=== PATIENT | female | born 1995 | race African-American/Black ===

== ENCOUNTER 2021-03-12 11:40 | Inpatient (IN) ==
[2021-03-12] MEDS ORDERED: MEPERIDINE 50 MG/1 ML VIAL IV PRN (12:34)
[2021-03-12] MEDS ORDERED: LACTATED RINGERS 1,000 ML IV PRN (12:34)
[2021-03-12] MEDS ORDERED: ONDANSETRON 4 MG/2 ML VIAL IV PRN (12:34)
[2021-03-12 12:55] LABS: Basophils % 0.1 % (0.0-0.8); Eosinophils # 0.1 10*3/uL (0.0-0.87); Eosinophils % 0.9 % (0.00-10.9); Hematocrit 34.1 VOL% (35.7-47.0); Hemoglobin 11.2 GM/DL (12.0-16.0); Immature Granulocytes Absolute 0.09 #; Lymphocytes # 2.2 10*3/uL (1.4-4.0); Lymphocytes % 24.4 % (21.3-54.2); Mean Corpuscular HGB Conc 32.8 GM/DL (32-36); Mean Corpuscular Volume 85.9 FL (87-102); Mean Platelet Volume 9.5 FL (9.6-12.0); Monocytes % 8.9 % (1.7-12.7); NRBC # 0.03 10*3/uL; Neutrophils % 64.7 % (38.7-73.9); Platelet Count 214 T/CUMM (130-400); Red Blood Count 3.97 MC/CUMM (3.8-5.5); Red Cell Distribution Width 14.6 % (9.3-17.3)
[2021-03-12 13:11] LABS: INR 0.9; PT Patient Result 9.9 SECS (10.5-12.0); Partial Thromboplastin Time 31.4 SECS (23.9-33.8)
[2021-03-12 13:16] LABS: Albumin 2.6 G/DL (3.4-5.0); Bilirubin,Direct 0.12 MG/DL (0.0-0.20); Bilirubin,Total 0.4 MG/DL (0.20-1.00); Calcium 9.2 MG/DL (8.5-10.1); Osmolality,Calculated 268.8 MOS/KG (273-304); Potassium 3.6 MMOL/L (3.5-5.1); Total Protein 7.1 G/DL (6.4-8.2); Uric Acid 5.7 MG/DL (2.6-6.0)
[2021-03-12 16:27] LABS: Protein/Creatinine Ratio,Urine 0.3 RATIO
[2021-03-12] MEDS: LABETALOL 100 MG TABLET PO SCH (21:20)
[2021-03-13] MEDS: LABETALOL 100 MG TABLET PO SCH (08:19)
[2021-03-13] MEDS ORDERED: FAMOTIDINE 20 MG/2 ML VIAL IV ONE (08:37)
[2021-03-13] MEDS ORDERED: ePHEDrine 50 MG/ML VIAL IV PRN (08:37)
[2021-03-13] MEDS ORDERED: CITRIC ACID/SODIUM CITRATE 30 ML UDCUP PO ONE (08:37)
[2021-03-13] MEDS ORDERED: LACTATED RINGERS 1,000 ML IV ONE (08:37)
[2021-03-13] MEDS ORDERED: NALOXONE 0.4 MG/ML VIAL IV PRN (08:37)
[2021-03-13] MEDS ORDERED: diphenhydrAMINE 50 MG/1 ML VIAL IV PRN ×2 (08:37)
[2021-03-13] MEDS ORDERED: LACTATED RINGERS 1,000 ML IV SCH ×2 (09:00)
[2021-03-13] MEDS ORDERED: fentaNYL 2 MCG/ROPIV 0.2% EPID 100 ML EPIDURAL SCH (09:00)
[2021-03-13] MEDS: OXYTOCIN/LR 20 UNIT/1,000 ML BAG IV SCH ×2 (09:18→16:51)
[2021-03-13] MEDS ORDERED: miSOPROStoL 200 MCG TABLET ONE (14:39)
[2021-03-13] MEDS ORDERED: TRANEXAMIC ACID 1,000 MG/10 ML VIAL ONE (14:39)
[2021-03-13] MEDS ORDERED: CARBOPROST TROMETHAMINE 250 MCG/ML AMP IM ONE (14:39)
[2021-03-13] MEDS ORDERED: METHYLERGONOVINE 0.2 MG/1 ML AMP ONE (14:39)
[2021-03-13] MEDS ORDERED: SODIUM CHLORIDE 0.9% 0 ML IV ONE (14:40)
[2021-03-13 15:18] LABS: Cord Arterial Blood HCO3 21.1 MMOL/L
[2021-03-13 15:22] LABS: Cord Venous Blood PO2 32.7
[2021-03-13] MEDS ORDERED: RHO(D) IMMUNE GLOBULIN 300 MCG SYRINGE IM ONE (17:56)
[2021-03-13] MEDS ORDERED: BISACODYL 10 MG SUPP RECTAL PRN (17:56)
[2021-03-13] MEDS ORDERED: OXYTOCIN/LR 20 UNIT/1,000 ML BAG IV ONE (17:56)
[2021-03-13] MEDS ORDERED: oxyCODONE/ACETAMINOPHEN 5-325 MG TABLET PO PRN ×2 (17:56)
[2021-03-13] MEDS ORDERED: DIPH/TET/ACEL PERT BOOSTER VACCINE 0.5 ML VIAL IM ONE (17:56)
[2021-03-13] MEDS ORDERED: WITCH HAZEL PADS 100/JAR TOP PRN (17:56)
[2021-03-13] MEDS ORDERED: LANOLIN 50% CREAM 0.3 OZ TUBE TOP PRN (17:56)
[2021-03-13] MEDS ORDERED: BENZOCAINE 20%/MENTHOL 0.5% SPRAY 56 GM CAN TOP PRN (17:56)
[2021-03-13] MEDS ORDERED: ACETAMINOPHEN 325 MG TABLET PO PRN (17:56)
[2021-03-13] MEDS ORDERED: HYDROCORTISONE 2.5% RECTAL CREAM 30 GM TUBE TOP PRN (17:56)
[2021-03-13] MEDS ORDERED: MEASLES/MUMPS/RUBELLA VACCINE 0.5 ML VIAL SUBCUT ONE (17:56)
[2021-03-13] MEDS: IBUPROFEN 800 MG TABLET PO PRN (19:05)
[2021-03-13] MEDS: DOCUSATE SODIUM 100 MG CAPSULE PO SCH (21:33)
[2021-03-14 05:59] LABS: Basophils % 0.2 % (0.0-0.8); Eosinophils # 0.2 10*3/uL (0.0-0.87); Eosinophils % 1.5 % (0.00-10.9); Hemoglobin 9.9 GM/DL (12.0-16.0); Immature Granulocytes % 0.8 %; Immature Granulocytes Absolute 0.08 #; Lymphocytes # 2.3 10*3/uL (1.4-4.0); Lymphocytes % 23.3 % (21.3-54.2); Mean Corpuscular Volume 85.2 FL (87-102); Monocytes % 8.8 % (1.7-12.7); NRBC # 0.03 10*3/uL; Neutrophils % 65.4 % (38.7-73.9); Platelet Count 179 T/CUMM (130-400); Red Blood Count 3.52 MC/CUMM (3.8-5.5); Red Cell Distribution Width 14.6 % (9.3-17.3); White Blood Count 9.9 T/CUMM (4-12)
[2021-03-14] MEDS: DOCUSATE SODIUM 100 MG CAPSULE PO SCH ×2 (10:15→19:51)
[2021-03-14] MEDS ORDERED: RHO(D) IMMUNE GLOBULIN 300 MCG SYRINGE IM ONE (15:41)
[2021-03-14] MEDS: IBUPROFEN 800 MG TABLET PO PRN (19:51)
[2021-03-15] MEDS: DOCUSATE SODIUM 100 MG CAPSULE PO SCH ×2 (07:26→08:51)
[2021-03-15 09:44] VITALS: BP 150/96
== END 2021-03-15 11:10 | disposition home or self-care (01) | DRG 807 ==
LOC: N.LDOUT 11:40 → N.LD 11:42 → N.OB 03-13 17:55
PROVIDERS: ADMIT Obstetrics & Gynecology; ATTEND Obstetrics & Gynecology

== ENCOUNTER 2022-06-14 03:13 | Inpatient (IN) ==
[2022-06-14] MEDS ORDERED: ONDANSETRON 4 MG/2 ML VIAL IV PRN (03:23)
[2022-06-14] MEDS ORDERED: miSOPROStoL 200 MCG TABLET RECTAL PRN (03:23)
[2022-06-14] MEDS ORDERED: OXYTOCIN/LR 20 UNIT/1,000 ML BAG IV ONE (03:23)
[2022-06-14] MEDS ORDERED: METHYLERGONOVINE 0.2 MG/1 ML AMP IM PRN (03:23)
[2022-06-14] MEDS ORDERED: TRANEXAMIC ACID 1,000 MG in SODIUM CHLORIDE 0.9% 100 ML IV PRN (03:23)
[2022-06-14] MEDS ORDERED: CARBOPROST TROMETHAMINE 250 MCG/ML AMP IM PRN (03:23)
[2022-06-14 04:00] LABS: Basophils % 0.1 % (0.0-0.8); Eosinophils # 0.1 10*3/uL (0.0-0.87); Hematocrit 33.4 VOL% (35.7-47.0); Hemoglobin 10.9 GM/DL (12.0-16.0); Immature Granulocytes % 0.5 %; Immature Granulocytes Absolute 0.04 #; Lymphocytes # 2.7 10*3/uL (1.4-4.0); Lymphocytes % 32.6 % (21.3-54.2); Mean Corpuscular HGB Conc 32.6 GM/DL (32-36); Mean Corpuscular Volume 83.1 FL (87-102); Monocytes # 0.7 10*3/uL (0.11-0.8); Monocytes % 8.3 % (1.7-12.7); Neutrophils % 57.5 % (38.7-73.9); Platelet Count 260 T/CUMM (130-400); Red Blood Count 4.02 MC/CUMM (3.8-5.5); Red Cell Distribution Width 15.4 % (9.3-17.3); White Blood Count 8.2 T/CUMM (4-12)
[2022-06-14] MEDS: LACTATED RINGERS 1,000 ML IV SCH ×2 (04:00→06:55)
[2022-06-14] MEDS ORDERED: OXYTOCIN/LR 20 UNIT/1,000 ML BAG IV SCH (04:00)
[2022-06-14 04:17] LABS: Alanine Aminotransferase 13 U/L (13-56); Albumin 2.6 G/DL (3.4-5.0); Alkaline Phosphatase 184 U/L (45-117); Aspartate Amino Transferase 11 U/L (0-37); Bilirubin,Total < 0.39 MG/DL (0.20-1.00); Blood Urea Nitrogen 7 MG/DL (7-18); Calcium 8.8 MG/DL (8.5-10.1); Carbon Dioxide 23 MMOL/L (21-32); Chloride 110 MMOL/L (98-107); Glucose 83 MG/DL (74-106); Osmolality,Calculated 273.5 MOS/KG (273-304); Potassium 3.9 MMOL/L (3.5-5.1); Sodium 139 MMOL/L (136-145); Total Protein 7.1 G/DL (6.4-8.2); Uric Acid 5.1 MG/DL (2.6-6.0)
[2022-06-14] MEDS ORDERED: diphenhydrAMINE 50 MG/1 ML VIAL IV PRN ×2 (14:02)
[2022-06-14] MEDS ORDERED: NALOXONE 0.4 MG/ML VIAL IV PRN (14:02)
[2022-06-14] MEDS ORDERED: CITRIC ACID/SODIUM CITRATE 30 ML UDCUP PO ONE (14:02)
[2022-06-14] MEDS ORDERED: ePHEDrine 50 MG/ML VIAL IV PRN (14:02)
[2022-06-14] MEDS ORDERED: PROMETHAZINE 25 MG/1 ML VIAL IM ONE (14:02)
[2022-06-14] MEDS ORDERED: LACTATED RINGERS 1,000 ML IV ONE (14:02)
[2022-06-14] MEDS ORDERED: hydrOXYzine HCL 25 MG/1 ML VIAL IM PRN (14:02)
[2022-06-14] MEDS ORDERED: FAMOTIDINE 20 MG/2 ML VIAL IV ONE (14:02)
[2022-06-14] MEDS ORDERED: fentaNYL 2 MCG/ROPIV 0.2% EPID 100 ML EPIDURAL SCH (14:30)
[2022-06-14] MEDS ORDERED: OXYTOCIN/LR 30 UNIT/1,000 ML BAG IV ONE (15:21)
[2022-06-14 15:26] LABS: Cord Venous Blood HCO3 21.8 MMOL/L; Cord Venous Blood PCO2 40.7 MMHG; Cord Venous Blood PO2 29.4
[2022-06-14 16:11] LABS: Mucus,Urine Occasional /LPF (Occasional); RBC,Urine <1 /HPF (0-4)
[2022-06-14 16:12] LABS: Glucose,Urine (UA) Negative (Negative); Ketones,Urine >=160 mg/dL (Negative); Nitrite,Urine Positive (Negative); Protein,Urine Negative (Negative); Urine Appearance Clear (Clear); Urine Color Yellow (Yellow); Urine pH 6.5 (4.5-8.0)
[2022-06-14 16:13] LABS: Bilirubin,Urine Negative (Negative); Blood, Urine Trace mg/dL (Negative); Urine Urobilinogen 0.2 eU/dL (<2.0)
[2022-06-15 05:55] LABS: Basophils % 0.1 % (0.0-0.8); Eosinophils # 0.1 10*3/uL (0.0-0.87); Hematocrit 34.8 VOL% (35.7-47.0); Hemoglobin 11.3 GM/DL (12.0-16.0); Immature Granulocytes % 0.5 %; Immature Granulocytes Absolute 0.06 #; Lymphocytes % 26.4 % (21.3-54.2); Mean Corpuscular HGB Conc 32.5 GM/DL (32-36); Mean Corpuscular Volume 83.7 FL (87-102); Mean Platelet Volume 9.1 FL (9.6-12.0); Monocytes # 0.7 10*3/uL (0.11-0.8); Monocytes % 6.1 % (1.7-12.7); Neutrophils % 65.9 % (38.7-73.9); Platelet Count 264 T/CUMM (130-400); Red Blood Count 4.16 MC/CUMM (3.8-5.5); Red Cell Distribution Width 15.7 % (9.3-17.3); White Blood Count 11.5 T/CUMM (4-12)
[2022-06-15] MEDS: DOCUSATE SODIUM 100 MG CAPSULE PO SCH ×2 (08:03→21:08)
[2022-06-15] MEDS: oxyCODONE/ACETAMINOPHEN 5-325 MG TABLET PO PRN (08:05)
[2022-06-15] MEDS: IBUPROFEN 800 MG TABLET PO PRN (08:06)
[2022-06-16] MEDS: DOCUSATE SODIUM 100 MG CAPSULE PO SCH ×2 (07:57→08:00)
[2022-06-16] MEDS: oxyCODONE/ACETAMINOPHEN 5-325 MG TABLET PO PRN (07:58)
[2022-06-16] MEDS: IBUPROFEN 800 MG TABLET PO PRN (08:00)
[2022-06-16] MEDS ORDERED: INFLUENZA VIRUS VACCINE 0.5 ML SYRINGE IM ONE (09:00)
[2022-06-16 16:23] VITALS: BP 145/79
== END 2022-06-16 17:35 | disposition home or self-care (01) | DRG 807 ==
LOC: N.LD 03:13 → N.OB 17:40
PROVIDERS: ADMIT Obstetrics & Gynecology; ATTEND Obstetrics & Gynecology